=== PATIENT | male | born 1985 | race Caucasian/White ===

== ENCOUNTER 2019-09-16 15:48 | Emergency (ER) | payer OTHER ==
[2019-09-16 16:15] VITALS: BP 145/96
--- NOTE | 2019-09-16 16:15 | UC ---
Ear Complaint HPI - HPI Summary HPI Summary: Patient presents to urgent care for evaluation of right ear pain. Patient's is a started yesterday. Patient states it feels sticky when he touches it. No actual drainage noted. No fevers or chills. Patient states his hearing is slightly decreased on the side. Patient states he developed a slight headache on the right side from the pain. Patient does have chronic pain for which she is on Lyrica as well as Percocet. Patient also takes ibuprofen 800 mg several times a day. Patient states he's had little improvement with these medications. No fevers or chills. No cough or chest pain. Patient has never had ear surgery. Patient's medications is entered in the EMR by triage nurse reviewed this visit. As discussed, you have been tested for COVID-19. Please follow the strict isolation guidelines as included in your paperwork. You should remain on isolation until you received a phone call with your test results from the [facility]. This may take 2-3 days. If you have any questions, please contact the Health Department. - History of Current Complaint Stated Complaint: RIGHT EAR PAIN Time Seen by Provider: 09/16/19 16:00 Hx Obtained From: Patient Onset/Duration: Gradual Onset Severity Initially: Moderate Severity Currently: Severe Pain Intensity: 8 - Allergies/Home Medications Allergies/Adverse Reactions: Allergies Allergy/AdvReac Type Severity Reaction Status Date / Time gabapentin Allergy Altered Verified 09/16/19 16:03 Mental Status levofloxacin [From Levaquin] Allergy Anaphylatic Verified 09/16/19 16:03 Shock Home Medications: Home Medications Amoxicillin/Clavulanate TAB* [Augmentin TAB 875*] 875 mg PO BID #14 tab [Rx] Atorvastatin* [Lipitor 20 MG*] 20 mg PO DAILY 09/16/19 [History Confirmed ] Cyclobenzaprine TAB* [Flexeril 10 MG TAB*] 10 mg PO TID 09/16/19 [History Confirmed 09/16/19] Ibuprofen TAB* [Motrin TAB* 800 MG] 800 mg PO TID 09/16/19 [History Confirmed ] Lisinopril TAB* [Prinivil TAB 10 MG*] 20 mg PO DAILY 09/16/19 [History Confirmed 09/16/19] Metoprolol Succinate 200 mg PO DAILY 09/16/19 [History Confirmed 09/16/19] Neomyc/Polym/HC 1% OTIC SUSP* [Cortisporin Otic Susp 1%*] 4 drop RIGHT EAR TID # 1 btl 09/16/19 [Rx] Oxycodone HCl/Acetaminophen [Percocet 7.5-325 mg Tablet] 1 tab PO QID 09/16/19 [ History Confirmed 09/16/19] Pregabalin 100 mg CAP (*) [Lyrica 100 mg CAP (*)] 150 mg PO TID 09/16/19 [ History Confirmed 09/16/19] PMH/Surg Hx/FS Hx/Imm Hx Previously Healthy: Yes - chronic pain, testicular CA - Surgical History Surgical History: Yes - right hand, testicle - Family History Known Family History: Negative: Hypertension, Diabetes - Social History Occupation: Disabled - workers comp- hand Lives: With Family Alcohol Use: None Substance Use Type: None Smoking Status (MU): Heavy Every Day Tobacco Smoker Type: Cigarettes Review of Systems All Other Systems Reviewed And Are Negative: Yes Constitutional: Positive: Negative Skin: Positive: Negative Eyes: Positive: Negative ENT: Positive: Ear Ache Respiratory: Positive: Negative Cardiovascular: Positive: Negative Gastrointestinal: Positive: Negative Genitourinary: Positive: Negative Motor: Positive: Negative Neurovascular: Positive: Negative Musculoskeletal: Positive: Negative Neurological/Mental Status: Positive: Headache Psychological: Positive: Negative Is Patient Immunocompromised?: No Physical Exam - Summary Physical Exam Summary: Vital Signs Reviewed: Yes A+Ox3, holding right ear in discomfort Eyes: Conjunctiva Clear, MALIKA. EOM intact and full ENT: Hearing grossly normal , Left TM wnl Right ear: + inflammed, erythema right canal no drainage. Partial view of TM - + erythema, no fluid, no mastoid pain, mmoist, uvula midline, no exudate, no erythema Neck: Positive: Supple Respiratory: Positive: No respiratory distress, No accessory muscle use + CTA throughout no w/r Cardiovascular: RRR nl s1, s2 no m/r CBT <2 sec abd soft + BS nt/nd no guarding, no distension Musculoskeletal Exam: FERNANDEZ x 4 without difficulty Strength Intact, ROM Intact Neurological: Positive: Alert, + sensation throughout Psychological: Positive: Normal Response To examiner Skin: Positive: no rash, no ecchymosis Triage Information Reviewed: Yes Ear Complaint Course/Dx - Course Course Of Treatment: Patient presents to urgent care for evaluation of pain in his right ear. Patient started yesterday. Patient states hearing is slightly decreased on the side. On exam vital signs reviewed. Patient does have obvious otitis externa. Partial resolution of the TM is also concerning for erythema and a dull appearance. Unable to visualize for fluid. Discussed with patient length. We' ll prescribe Cortisporin drops as well as Augmentin. Strict return precautions discussed. Patient has Percocet and Motrin at home. Recommend follow up PCP. Patient comfortable with plan. Patient's nontoxic in for mastoid involvement at today's evaluation. - Differential Dx/Diagnosis Provider Diagnosis: Right otitis media, Right otitis externa Discharge ED - Sign-Out/Discharge Documenting (check all that apply): Patient Departure All imaging exams completed and their final reports reviewed: No Studies - Discharge Plan Condition: Stable Disposition: HOME Prescriptions: Amoxicillin/Clavulanate TAB* [Augmentin TAB 875*] 875 mg PO BID #14 tab Neomyc/Polym/HC 1% OTIC SUSP* [Cortisporin Otic Susp 1%*] 4 drop RIGHT EAR TID # 1 btl Patient Education Materials: Otitis Externa (DC), Serous Otitis Media (ED) Referrals: Kenny HOLDEN,Jamel Russo [Primary Care Provider] - Additional Instructions: Use ear drops and take oral antibiotics as prescribed Okay to take ibuprofen and percocet as prescribed Okay to put a cotton ball at the outside edge of your ear canal after apply drops - do not stick anything inside your ear call your doctor to schedule a follow-up appointment or with any questions or concerns - Billing Disposition and Condition Condition: STABLE Disposition: Home
== END 2019-09-16 16:45 | disposition home or self-care (01) ==
LOC: UCEAST 15:48
DX: H66.91 Otitis media, unspecified, right ear (principal); H60.91 Unspecified otitis externa, right ear; Z88.8 Allergy status to other drugs, medicaments and biological substances
CPT/HCPCS: 99202; G0463